=== PATIENT | male | born 2000 | race African-American/Black ===

== ENCOUNTER 2019-06-27 20:16 | Emergency (ER) | payer OTHER ==
[~2019-06-27] VITALS: Ht 177.8 cm; Wt 71.8 kg
[2019-06-27] MEDS ORDERED: VALT1TAB PO (21:51)
[2019-06-27] MEDS ORDERED: valACYclovir HCL 500 MG TAB PO ONE (22:00)
[2019-06-27 22:21] VITALS: BP 131/69
[2019-06-27 23:37] LABS: CHLAMYDIA DNA AMPLIFICATION NEGATIVE (NEGATIVE); GC DNA AMPLIFICATION NEGATIVE (NEGATIVE)
== END 2019-06-27 22:23 | disposition home or self-care (01) ==
LOC: M ED 20:16
DX: Z20.2 Contact with and (suspected) exposure to infections with a predominantly sexual mode of transmission (principal); N48.5 Ulcer of penis; F17.210 Nicotine dependence, cigarettes, uncomplicated

== ENCOUNTER 2019-08-03 06:14 | Emergency (ER) | payer OTHER ==
[~2019-08-03] VITALS: Ht 175.3 cm; Wt 70.5 kg
[2019-08-03 06:14] VITALS: BP 140/76
[~2019-08-03 06:14] MED LIST: VALT1TAB PO
[2019-08-03] MEDS ORDERED: VALA1TAB64 PO (07:15)
[2019-08-03] MEDS ORDERED: valACYclovir HCL 500 MG TAB PO ONE (07:15)
== END 2019-08-03 07:34 | disposition home or self-care (01) ==
LOC: M ED 06:14
DX: Z76.0 Encounter for issue of repeat prescription (principal); A60.01 Herpesviral infection of penis; Z79.899 Other long term (current) drug therapy

== ENCOUNTER 2020-12-12 11:01 | Emergency (ER) | payer OTHER ==
[~2020-12-12] VITALS: Ht 175.3 cm; Wt 71.1 kg
[~2020-12-12 11:01] MED LIST changes: +VALA1TAB5 PO
[2020-12-12] MEDS ORDERED: VALT1TAB PO (12:39)
[2020-12-12 12:55] VITALS: BP 141/70
== END 2020-12-12 12:55 | disposition home or self-care (01) ==
LOC: M ED 11:01
DX: A60.02 Herpesviral infection of other male genital organs (principal); F17.200 Nicotine dependence, unspecified, uncomplicated